=== PATIENT | female | born 1955 | race Caucasian/White ===

== ENCOUNTER 2023-02-18 19:44 | Observation (INO) | payer MEDICARE ==
[2023-02-18 23:51] VITALS: BMI 24.9
[2023-02-19] MEDS ORDERED: Ondansetron PF 4 MG/2 ML Vial IVP PRN (00:25)
[2023-02-19] MEDS ORDERED: Dextrose 50% Abboject 50 ML SYRINGE SLOW IVP PRN (00:26)
[2023-02-19] MEDS ORDERED: Dextrose 5% in Water 1,000 ML IV PRN (00:26)
[2023-02-19] MEDS ORDERED: Glucagon 1 MG/ML KIT IM PRN (00:26)
[2023-02-19] MEDS ORDERED: HumaLOG 300 UNITS/3 ML VIAL SC PRN ×2 (00:26)
[2023-02-19] MEDS ORDERED: Acetaminophen 650 MG Suppository PR PRN (00:27)
[2023-02-19] MEDS ORDERED: Ondansetron PF 4 MG/2 ML Vial IVP SCH (00:30)
[2023-02-19] MEDS: Sodium Chloride 0.9% 1,000 ML IV SCH ×2 (00:34→14:15)
[2023-02-19] MEDS: Morphine 4 MG/ML VIAL SLOW IVP PRN ×3 (00:34→22:03)
[2023-02-19] MEDS: Ketorolac Tromethamine 30 MG/ML VIAL IVP PRN ×2 (08:43→16:39)
[2023-02-19] MEDS ORDERED: Promethazine HCl 25 MG in Sodium Chloride 0.9% 50 ML IVPB PRN (08:49)
[2023-02-19] MEDS ORDERED: Non-Formulary Item 1 EACH (Multivitamin [Multiple Vitamins] 1 EACH Tablet) PO SCH (09:00)
[2023-02-19] MEDS: Lisinopril 10 MG TAB PO SCH (09:38)
[2023-02-19] MEDS: Multivit, Therapeutic 1 TAB PO SCH (09:39)
[2023-02-19 10:23] LABS: ALT (SGPT) 45 U/L (8-55); AST (SGOT) 46 U/L (5-34); Albumin 3.1 g/dL (3.4-4.8); Alkaline Phosphatase 126 U/L (40-110); Anion Gap 9 mmol/L (10-20); BUN (Urea Nitrogen) 10 mg/dL (9.8-20.1); Calc. Creatinine Clearance 71 mL/min (70-130); Carbon Dioxide 22 mmol/L (23-31); Chloride 110 mmol/L (98-107); Estimated GFR 88; Globulin 2.7 g/dL (2.4-3.5); Glucose 154 mg/dL (80-115); Potassium 3.9 mmol/L (3.5-5.1); Protein, Total 5.8 g/dL (5.8-8.1); Sodium 137 mmol/L (136-145)
[2023-02-19 10:32] LABS: INR-International Normal Ratio 1.1; Prothrombin Time 14.5 sec (12.0-14.7)
[2023-02-19] MEDS ORDERED: Promethazine HCl 12.5 MG in Sodium Chloride 0.9% 50 ML IVPB PRN (10:32)
[2023-02-19 10:56] LABS: #Eosinphils 0.1 thou/uL (0.0-0.7); #Monocytes 0.5 thou/uL (0.11-0.59); #Neutrophils 4.3 thou/uL (1.40-6.50); %Basophils 0.7 % (0.0-1.0); %Eosinophils 1.9 % (0.0-10.0); %Lymphocytes 16.3 % (21.0-51.0); %Monocytes 8.5 % (0.0-10.0); %Neutrophils 72.1 % (42.0-75.0); Hematocrit 28.7 % (36.0-47.0); Hemoglobin 9.6 g/dL (12.0-16.0); Mean Corpuscular HGB CONC 33.4 g/dL (32.0-36.0); Mean Corpuscular Hemoglobin 33.4 pg (27.0-31.0); Mean Platelet Volume 10.3 fL (7.4-10.4); Platelet Count 282 10x3/uL (130-400); RBC Distribution Width 16.1 % (11.5-14.5); Red Blood Cell (RBC) Count 2.87 mill/uL (4.20-5.40); White Blood Cell (WBC) Count 5.9 10x3/uL (4.8-10.8)
[2023-02-20] MEDS: Sodium Chloride 0.9% 1,000 ML IV SCH ×2 (00:06→09:58)
[2023-02-20] MEDS: Acetaminophen 325 MG TAB PO PRN ×2 (00:09→18:13)
[2023-02-20] MEDS: Ketorolac Tromethamine 30 MG/ML VIAL IVP PRN (08:58)
[2023-02-20] MEDS: Multivit, Therapeutic 1 TAB PO SCH (09:01)
[2023-02-20] MEDS: Lisinopril 10 MG TAB PO SCH (09:01)
[2023-02-20 09:12] LABS: ALT (SGPT) 42 U/L (8-55); AST (SGOT) 37 U/L (5-34); Albumin 3.2 g/dL (3.4-4.8); Alkaline Phosphatase 123 U/L (40-110); Anion Gap 11 mmol/L (10-20); BUN (Urea Nitrogen) 8 mg/dL (9.8-20.1); Bilirubin, Total 1.2 mg/dL (0.2-1.2); Calc. Creatinine Clearance 80 mL/min (70-130); Calcium 7.9 mg/dL (7.8-10.44); Carbon Dioxide 19 mmol/L (23-31); Chloride 107 mmol/L (98-107); Estimated GFR 97; Globulin 2.9 g/dL (2.4-3.5); Glucose 129 mg/dL (80-115); Potassium 4.1 mmol/L (3.5-5.1); Protein, Total 6.1 g/dL (5.8-8.1); Sodium 133 mmol/L (136-145)
[2023-02-20 09:18] LABS: #Monocytes 0.3 thou/uL (0.11-0.59); #Neutrophils 5.2 thou/uL (1.40-6.50); %Basophils 0.3 % (0.0-1.0); %Eosinophils 0.3 % (0.0-10.0); %Monocytes 4.5 % (0.0-10.0); %Neutrophils 80.6 % (42.0-75.0); Hematocrit 28.7 % (36.0-47.0); Hemoglobin 10.4 g/dL (12.0-16.0); Mean Corpuscular HGB CONC 36.2 g/dL (32.0-36.0); Mean Corpuscular Hemoglobin 36.4 pg (27.0-31.0); Mean Corpuscular Volume 100.3 fl (78.0-98.0); Mean Platelet Volume 10.1 fL (7.4-10.4); Platelet Count 291 10x3/uL (130-400); RBC Distribution Width 15.4 % (11.5-14.5); Red Blood Cell (RBC) Count 2.86 mill/uL (4.20-5.40); White Blood Cell (WBC) Count 6.5 10x3/uL (4.8-10.8)
[2023-02-20 12:32] VITALS: TEMP 97.6
[2023-02-20] MEDS ORDERED: Ondansetron HCl/PF 4 MG/2 ML Vial IVP PRN (14:56)
[2023-02-20] MEDS ORDERED: Promethazine HCl 25 MG/ML VIAL IM PRN (14:56)
[2023-02-20] MEDS ORDERED: metroNIDAZOLE 500 MG in Premix Bag 1 BAG IVPB SCH (15:00)
[2023-02-20] MEDS ORDERED: Bupivacaine PF 0.5% 30 ML VIAL ONE (15:15)
[2023-02-20] MEDS ORDERED: EPINEPHrine 1 MG/ML AMP ONE (15:15)
[2023-02-20] MEDS ORDERED: SUGAMMADEX SODIUM 200 MG/2 ML VIAL ONE (15:21)
[2023-02-20] MEDS ORDERED: fentaNYL 50 mcg/mL 1 mL Vial ONE ×2 (15:21→16:53)
[2023-02-20] MEDS ORDERED: metroNIDAZOLE 500 MG/100 ML BAG ONE (15:31)
[2023-02-20] MEDS ORDERED: LevoFLOXacin 500 mg/D5W 100 ML BAG ONE (15:31)
[2023-02-20] MEDS ORDERED: Lidocaine 1% PF 5 ML VIAL ONE (15:39)
[2023-02-20] MEDS ORDERED: Rocuronium Bromide 10 MG/ML (10ML VIAL) ONE (15:39)
[2023-02-20] MEDS ORDERED: Ondansetron PF 4 MG/2 ML Vial ONE (15:39)
[2023-02-20] MEDS ORDERED: PROPOFOL 200 MG/20 ML VIAL ONE (15:39)
[2023-02-20] MEDS ORDERED: traMADol HCl 50 MG TAB PO PRN (16:53)
[2023-02-20 17:31] VITALS: BP 119/57
== END 2023-02-20 19:25 | disposition home or self-care (01) ==
LOC: UNDOADMOB 23:14 → T4-A 23:14
PROVIDERS: ADMIT Student in an Organized Health Care Education/Training Program; ATTEND Family Medicine
PROC: 0FT44ZZ Resection of Gallbladder, Percutaneous Endoscopic Approach (ICD-10-PCS; principal; 2023-02-20)
DX: K80.10 Calculus of gallbladder with chronic cholecystitis without obstruction (principal); I25.10 Atherosclerotic heart disease of native coronary artery without angina pectoris; E11.9 Type 2 diabetes mellitus without complications; E78.5 Hyperlipidemia, unspecified; I10 Essential (primary) hypertension; Z79.899 Other long term (current) drug therapy; Z88.0 Allergy status to penicillin; Z95.1 Presence of aortocoronary bypass graft
CPT/HCPCS: 47562; 74181; 80053 ×2; 82962 ×2; 85025 ×2; 85610; 93005; 93306; 96365; 96375; 96376 ×2; C1889; G0378 ×2; J3010; 36415; 36416; 88304; 93010; J0171; J0744; J1885; J1956; J2270; J2405; J2550; J2704; J7050; S0020